=== PATIENT | female | born 1935 | race Asian ===

== ENCOUNTER → 2017-08-06 | Outpatient (REF) | payer MEDICARE, OTHER | LOC: M LAB REF 13:43 | PROVIDERS: ATTEND Obstetrics & Gynecology | DX: N64.59 Other signs and symptoms in breast (principal) ==

== ENCOUNTER → 2018-06-09 | Outpatient (REF) | payer MEDICARE, OTHER ==
[2018-06-12 00:06] LABS: CYCLIC CITRULLINATED PEPTIDE 13 units (0-19)
== END ==
LOC: M LAB REF 17:21
DX: M79.673 Pain in unspecified foot (principal); R22.43 Localized swelling, mass and lump, lower limb, bilateral
CPT/HCPCS: 86200

== ENCOUNTER 2020-04-08 10:02 | Emergency (ER) | payer MEDICARE, BC, OTHER ==
[~2020-04-08] VITALS: Ht 152.4 cm; Wt 64.2 kg
[2020-04-08 10:46] LABS: BASO # 0.1 10^3/uL (0.0-0.2); EOS # 0.1 10^3/uL (0.0-0.5); EOS % 1.2 % (0.0-3.0); HEMATOCRIT 44.1 % (36.0-47.0); HEMOGLOBIN 13.1 g/dl (12.0-15.5); LYMPH # 2.4 10^3/uL (1.5-5.0); LYMPH % 29.9 % (24.0-44.0); MEAN CORPUSCULAR HEMOGLOBIN 20.4 pg (27.0-33.0); MEAN CORPUSCULAR HGB CONC 29.7 g/dl (32.0-36.5); MEAN CORPUSCULAR VOLUME 68.6 fl (80.0-96.0); MONO # 0.5 10^3/uL (0.0-0.8); MONO % 6.3 % (0.0-5.0); NEUTROPHILS % 61.4 % (36.0-66.0); PLATELET COUNT, AUTOMATED 197 10^3/uL (150-450); RED BLOOD COUNT 6.43 10^6/uL (4.00-5.40); WHITE BLOOD COUNT 8.2 10^3/uL (4.0-10.0)
[2020-04-08] MEDS ORDERED: IRBE300T7 PO (10:53)
[2020-04-08] MEDS ORDERED: SIMV20TA22 PO (10:53)
[2020-04-08] MEDS ORDERED: AMLO5TAB6 PO (10:53)
[2020-04-08 10:57] LABS: INR 0.92; PROTHROMBIN TIME 12.1 SECONDS (11.8-14.0)
[2020-04-08 11:25] LABS: CK-MB VALUE MASS 1.4 NG/ML (<3.6); CPK CREATINE PHOSPHOKINASE 103 U/L (26-192); MB/CK RELATIVE INDEX 1.36 (< OR =4); TROPONIN I < 0.02 NG/ML (< 0.10)
[2020-04-08] MEDS ORDERED: PRED20TA PO (13:57)
[2020-04-08] MEDS ORDERED: VALA1TAB5 PO (13:57)
[2020-04-08] MEDS ORDERED: PROP15DR12 OP (13:58)
[2020-04-08] MEDS ORDERED: predniSONE 20 MG TAB PO ONE (14:00)
[2020-04-08] MEDS ORDERED: valACYclovir HCL 500 MG TAB PO ONE (14:00)
[2020-04-08 14:13] VITALS: BP 125/66
--- NOTE | 2020-04-08 16:07 | ECGEPIP ---
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
--- NOTE | 2020-04-09 08:30 | REP ---
CT BRAIN WITHOUT CONTRAST: 04/08/2020. COMPARISON: 04/16/2016. CLINICAL HISTORY: CVA. FINDINGS: Standard noncontrast soft tissue and bone windows are reviewed for each slice level. Lateral ventricles are midline, symmetric, and proportionate in size to the diffuse cerebral atrophy. All of this is age appropriate and without significant progression. Atrophy is greatest in the temporal lobes. It is present in all lobes. Basal ganglia are symmetric with a few calcifications present on each side, unchanged. Some scattered hypodensities in the periventricular deep central and subcortical white matter again seen suggesting small vessel ischemic changes, stable. There is no vascular territory infarct, intra- or extra-axial hemorrhage, mass, or mass effect. Basal cisterns are intact. The brainstem unremarkable. Cerebellum with minimal atrophy but no mass or bleed. Some minor vascular calcifications in the carotid siphons. The visualized mastoids and sinuses are clear. Skull base and calvarium show no fracture or focal lesion. IMPRESSION: 1. Small vessel white matter ischemic change, stable. 2. Lateral ventricular size and cortical atrophy in proportion and age appropriate. 3. No intracranial hemorrhage, infarct, edema or mass. No mass effect. 4. No fracture skull base or calvarium. The visualized sinuses and mastoids are clear. Electronically Signed by Real Rivas MD 04/09/2020 08:48 A
--- NOTE | 2020-04-09 08:36 | REP ---
AP PORTABLE CHEST: 04/08/2020. COMPARISON: 07/21/2012. CLINICAL HISTORY: CVA. FINDINGS: Lungs are adequately inflated. There is some underlying mild fibrotic change in the bases but no pleural effusion, acute infiltrate or parenchymal mass. Some venous hypertension is noted with engorgement of the upper lung zone pulmonary veins but vessel margins are sharp, no interstitial edema. There is left atrial enlargement. Heart size borderline. The aorta is calcified at the arch and tortuous but unchanged. Airway intact. Bony thorax is demineralized but without acute fracture evident. Degenerative changes of the left shoulder and AC joint as well as the spine and a levoconvex curve lower thoracic region. IMPRESSION: 1. Borderline heart size with left atrial enlargement and some pulmonary venous hypertension. No effusion, infiltrate, or brennen edema. 2. Tortuous calcified aorta, stable. 3. Degenerative changes spine and left shoulder with about a fracture or destructive lesion. Electronically Signed by Real Rivas MD 04/09/2020 08:48 A
--- NOTE | 2020-04-09 09:54 | REP ---
MRI BRAIN WITHOUT CONTRAST: 04/08/2020. CLINICAL HISTORY: Right facial droop for 2 days. Rule out CVA. COMPARISON: CT brain without contrast, 04/08/2020, 04/16/2016. TECHNIQUE: Sagittal T1 with axial T1, T2, FLAIR, gradient-echo, and diffusion-weighted images with ADC mapping sequences. FINDINGS: Lateral ventricles are midline, symmetric, and their size proportionate to the diffuse cerebral atrophy. All of this is age appropriate. There are chronic T2 and FLAIR hyperintense signal foci in the periventricular, deep central and subcortical white matter bilaterally. Basal ganglia are symmetric. There is slight hyperintense symmetric appearance on the T2 images globus pallidus with some dark signal on gradient-echo images. There is also slightly hyperintense signal on the diffusion-weighted images and this suggests chronic process, such as hemosiderin from microhemorrhage. No definite acute infarct. CT showed symmetric calcifications in the basal ganglia. Diffusion-weighted images and ADC mapping sequences demonstrated no evidence of restricted water diffusion to suggest acute ischemia. Cortical stripe was preserved and likewise without signal abnormality on an acute basis. Brainstem and cerebellum show no signal abnormality or significant cerebellar atrophy. Seventh/eighth cranial nerve complexes and mastoid aeration are symmetric and normal. Visualized sinuses are clear. The orbits and contents show no asymmetry or mass. Sagittal images show the corpus callosum, optic chiasm, and pituitary intact. No cerebellar tonsillar ectopia. IMPRESSION: 1. Chronic small vessel white matter ischemic changes of aging diffusely and scattered in both hemispheres. 2. Symmetric hypointense signal in the globus pallidus within the basal ganglia suggest hemosiderin or mineral deposition such as calcium. This is not acute. 3. Diffusion-weighted images show no evidence of ischemia on acute basis or restricted water diffusion. 4. Some cerebral atrophy and proportionate ventricular size, age appropriate. 5. No intracranial acute bleed. 6. Brainstem and cerebellum unremarkable. Electronically Signed by Real Rivas MD 04/09/2020 06:34 P
[2020-04-10 21:05] LABS: Lyme Disease IgG/IgM Antibodie <0.91 ISR (0.00-0.90); Lyme Disease IgM Ab Quantitati <0.80 index (0.00-0.79)
== END 2020-04-08 14:18 | disposition home or self-care (01) ==
LOC: M ED 10:02
DX: G51.0 Bell's palsy (principal); I10 Essential (primary) hypertension; E03.9 Hypothyroidism, unspecified; Q25.46 Tortuous aortic arch; R93.7 Abnormal findings on diagnostic imaging of other parts of musculoskeletal system; R93.1 Abnormal findings on diagnostic imaging of heart and coronary circulation; R90.82 White matter disease, unspecified; Z79.899 Other long term (current) drug therapy; Z88.8 Allergy status to other drugs, medicaments and biological substances

== ENCOUNTER → 2020-08-28 | Outpatient (REF) | payer MEDICARE, OTHER ==
[~2020-08-28] MED LIST: AMLO1TAB24 PO; IRBE300T7 PO; PRED20TA PO; PROP15DR12 OP; SIMV20TA22 PO; VALA1TAB5 PO
== END ==
LOC: M LAB REF 11:48
PROVIDERS: ATTEND Internal Medicine
DX: R30.0 Dysuria (principal)

== ENCOUNTER → 2023-05-20 | Outpatient (CLI) | payer MEDICARE, OTHER | LOC: M WUC 15:01 | PROVIDERS: ATTEND Internal Medicine | DX: S42.025A Nondisplaced fracture of shaft of left clavicle, initial encounter for closed fracture (principal); M19.032 Primary osteoarthritis, left wrist; M47.816 Spondylosis without myelopathy or radiculopathy, lumbar region; M47.817 Spondylosis without myelopathy or radiculopathy, lumbosacral region; W10.9XXA Fall (on) (from) unspecified stairs and steps, initial encounter; Y92.9 Unspecified place or not applicable; Y99.9 Unspecified external cause status; Y93.89 Activity, other specified; X58.XXXA Exposure to other specified factors, initial encounter ==